=== PATIENT | female | born 1995 | race Caucasian/White ===

== ENCOUNTER → 2017-08-30 | Outpatient (CLI) | payer BC ==
[~2017-08-30] MED LIST: CATHETER FLUSH 10 ML SYR IV PRN; IOHEXOL 350 MG/ML 150 ML (OMNIPAQUE 350) VIAL IV ONE; NS 100 ML (IVPB) BAG IV ONE
--- NOTE | 2017-08-30 17:16 | Diagnostic Imaging Report ---
PROCEDURE: CT angiography of the chest with contrast. TECHNIQUE: Multiple contiguous axial images were obtained through the chest after uneventful bolus administration of intravenous contrast. Reconstructed CTA MIP acquisitions were also performed. INDICATION: Chest pain with coughing and congestion. COMPARISON: None. FINDINGS: The pulmonary arteries are diagnostic to the segmental level. No pulmonary embolus is seen. The heart is normal in size. There is no pericardial effusion. No mediastinal lymph nodes appear enlarged by CT size criteria. Thymic tissue is noted. No axillary lymphadenopathy is seen. The lungs demonstrate no masses or consolidation. No pneumothorax or pleural effusion is seen. No central endobronchial lesions are identified. No acute osseous abnormality is seen. Imaged portions of the upper abdomen are unremarkable. IMPRESSION: 1. No pulmonary embolus. No acute thoracic abnormality seen. Findings discussed with Alexandra Serrano by Dr. Peng, on 08/30/2017 at 5:12 p.m. Dictated by: Dictated on workstation # [id number]
== END ==
LOC: RAD 16:17
PROVIDERS: ATTEND Nurse Practitioner Family
DX: R05 Cough (principal); R07.1 Chest pain on breathing; R09.89 Other specified symptoms and signs involving the circulatory and respiratory systems; R79.89 Other specified abnormal findings of blood chemistry
CPT/HCPCS: 71275